=== PATIENT | male | born 1970 | race Caucasian/White ===

== ENCOUNTER 2021-08-06 15:49 | Emergency (ER) | payer OTHER, SELFPAY ==
[2021-08-06 15:50] VITALS: BP 161/87; PULSE 103; RESP 18; TEMP 36.7; O2SAT 96; BMI 38.3
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
[2021-08-06 16:18] VITALS: BP 146/86; PULSE 108; O2SAT 98
[2021-08-06] MEDS: iohexol 300 mg/mL 100 mL Btl IV (16:22)
[2021-08-06] MEDS: tetanus-dipt-pertussis 0.5 mL SDV IM (16:40)
[2021-08-06 16:48] VITALS: BP 153/86; PULSE 104; O2SAT 97
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
[2021-08-06 17:18] VITALS: BP 155/87; PULSE 109; O2SAT 97
[2021-08-06 17:48] VITALS: BP 160/75; PULSE 105; O2SAT 96
[2021-08-06 18:35] LABS: Basophils # 0.1 10^3/uL (0.0-0.1); Basophils % 0.3 %; Eosinophils % 0.2 %; Hemoglobin 15.2 g/dL (11.7-16.6); Lymphocytes # 1.4 10^3/uL (0.8-4.8); Lymphocytes % 7.5 %; Mean Corpuscular HGB Conc 32.3 g/dL (30.0-36.0); Mean Corpuscular Hemoglobin 29.3 pg (28.0-34.0); Mean Corpuscular Volume 90.7 fl (80-94); Mean Platelet Volume 10.4 fL (7.4-10.4); Monocytes # 1.3 10^3/uL (0.2-0.9); Monocytes % 6.6 %; Neutrophils # 15.98 10^3/uL (1.8-7.7); Neutrophils % 84.6 %; Nucleated Red Blood Cells % 0 %; Platelet Count 341 10^3/cmm (130-400); Red Blood Count 5.18 10^6/uL (4.1-5.3); Red Cell Distribution Width 12.8 % (12.1-15.1); White Blood Count 18.9 10^3/uL (4.0-10.0)
[2021-08-06 19:13] LABS: Alanine Aminotransferase 17 U/L (0-41); Albumin Level 4.6 g/dL (3.5-5.2); Alkaline Phosphatase 125 IU/L (40-130); Anion Gap 18.1 (5-19); Aspartate Amino Transferase 26 U/L (0-40); Blood Urea Nitrogen 13 mg/dL (6-20); Calcium 9.5 mg/dL (8.5-10.5); Carbon Dioxide 20 mmol/L (22-29); Chloride 102 mmol/L (98-107); Globulin 3.3 g/dL (1.3-4.6); Glomerular Filtration Rate 118.4 mL/min (90-130); Glucose 106 mg/dL (65-115); Osmolality Calculated 283 mOsm/kg (285-295); Potassium 4.1 mmol/L (3.5-5.1); Sodium 136 mmol/L (136-145); Total Bilirubin 0.2 mg/dL (0.15-1.2); Total Protein 7.9 g/dL (6.6-8.7)
--- NOTE | 2021-08-07 11:39 | DCPLANNER ---
Addendum entered by Saadia Goldberg 10/15/21 14:52: system development manager was notified that patient had the MRI done somewhere else. Addendum entered by Saadia Goldberg 08/28/21 10:35: Patient had a follow up appointment scheduled for 08.11.21 with ortho - patient did not attend appointment. Original Note: system development manager had message to schedule a follow up appointment for patient with ortho and an outpatient MRI for patient. system development manager called the ortho clinic, spoke with Shabana, gave clinic patients information. system development manager was told that patients information would be printed and reviewed. Clinic will call patient with appointment information. system development manager also had message to schedule an outpatient MRI for patient. system development manager faxed signed order to centralized scheduling, who will call patient with appointment information.
== END 2021-08-06 18:33 | disposition home or self-care (01) ==
PROVIDERS: Emergency Provider Family Medicine
DX: S82.114A Nondisplaced fracture of right tibial spine, initial encounter for closed fracture (principal); S81.011A Laceration without foreign body, right knee, initial encounter; V43.53XA Car driver injured in collision with pick-up truck in traffic accident, initial encounter; Z23 Encounter for immunization
CPT/HCPCS: 12002; 29530; 70450; 71260; 72125; 73562; 74177; 80053; 85025; 90471; 90715; 99284; E0114; Q9967